=== PATIENT | male | born 1975 | race African-American/Black ===

== ENCOUNTER 2023-03-29 16:35 | Emergency (ER) | payer OTHER ==
[~2023-03-29] VITALS: Ht 177.8 cm; Wt 84.1 kg
[~2023-03-29 16:35] MED LIST: LISINOPRIL20 MG PO
[2023-03-29 16:43] VITALS: TEMP 99
[2023-03-29 18:28] VITALS: BP 132/81; PULSE 80
== END 2023-03-29 18:35 | disposition home or self-care (01) ==
LOC: COL.ER 16:35
DX: R05.9 Cough, unspecified (principal)